=== PATIENT | male | born 1975 ===

== ENCOUNTER 2025-06-28 09:20 | Outpatient (AMB) | payer OTHER, SELFPAY ==
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
[2025-06-28 09:26] VITALS: BP 150/100; PULSE 69; RESP 18; TEMP 35.5; O2SAT 99; BMI 28.0
== END 2025-06-28 10:24 | disposition home or self-care (01) ==
LOC: HO.HMCH 09:21
DX: I10 Essential (primary) hypertension (principal); Z76.89 Persons encountering health services in other specified circumstances

== ENCOUNTER → 2025-06-28 09:20 | Outpatient (BNVA) | payer OTHER, SELFPAY | DX: I10 Essential (primary) hypertension (principal); Z76.89 Persons encountering health services in other specified circumstances | CPT/HCPCS: 96127; 99202 ==

== ENCOUNTER 2025-08-23 08:54 | Outpatient (AMB) | payer OTHER, SELFPAY ==
[2025-08-23 09:04] VITALS: BP 126/78; PULSE 71; RESP 18; TEMP 36.2; O2SAT 95; BMI 26.7
--- NOTE | 2025-08-23 09:04 | A.OFFPC_ITS ---
Vital Signs 08/23/25 09:04 Height 5 ft 11 in Weight 191 lb 2 oz BMI 26.7 BP 126/78 Blood Pressure Location Lt brachial Position Sitting Respiration 18 Pulse 71 Pulse Source Pulse Oximeter Temp 97.1 F Temp Source Temporal Artery Scan Pulse Oximetry (%) 95 Oxygen Delivery Method Room Air Intake Visit Reasons: 7 week follow up Resolution Agent Required: No Accompanied by: Self / Same As Patient Allergies From Pen-Vee K Allergy (Mild, Uncoded 08/23/25 09:12) RASH Medication List - Last Reconciled 08/23/25 by ELIDA Galarza amlodipine 5 mg PO DAILY Tobacco use date assessed: 08/23/25 Dental Screening Dental Screen Date: 08/23/25 Did you have a dental visit in the last 12 months?: No Did you have a dental problem in the last 6 months where you did not have access to dental care?: No Was dental information given to patient?: No HPI 7 week follow up HPI Details Dentist: about couple years-encouraged the patient to get this done Eye: He has not had this check in a longtime Snellen: Right: Left: Corrected vision: no STI screening: Colonoscopy: Patient is this hesitant and wants to think about this and will possibly do this next year Pap Smer:n/a PHQ-9: Flu:he does not get this done COVID: x2 Tdap: reports having this over 15 years ago; declines getting this today Diet:He has been cutting out high cholesterol and salt out of his diet Exercise: The patient is very active; exercises regular and does martial arts Patient denies chest pain, shortness of breath, heart palpitation or dizziness Denies abdominal pain or change in bowel habits Denies any urinary symptoms The patient wants to follow up for lab review due to forgetting to complete preordered labs for this appointment Reports that he will get this done this ashley and follow up in 4 weeks. [facility] Medical History HTN (hypertension) Family History Mother HTN (hypertension) Social History Household Members: None Housing: Apartment Alcohol intake: never Patient Tobacco Use Status: Never used Tobacco e-Cigarette/Vaping Use: Never Used service: No Current occupational status: unemployed Cognitive needs: No Hearing needs: No Vision needs: No Questionnaire Thrive Questionnaire Date Thrive assessed: 06/28/25 I am a: Patient What is your living situation today?: I have a steady place to live Within the past 12 months, did the food you bought not last and you didn't have the money to get more?: Never true Within the past 12 months, did you worry whether your food would run out before you got money to buy more?: Never true Do you have trouble paying for medicines?: No Do you have trouble getting transportation to medical appointments?: No Do you have trouble paying your heating and electricity bill?: No Do you have trouble taking care of your child, family member or friend?: No Do you have trouble with day-to-day activities such as bathing, preparing meals, shopping, managing finances, etc.?: I choose not to answer this question Are you currently unemployed and looking for a job?: Yes Are you interested in more education?: Yes Currently or been in a relationship where the following occur: No concerns reported THRIVE Score: 0 AUDIT C Alcohol Use Questionnaire (AUDIT-C) 3. How often do you have six or more drinks on one occasion?: Never Total Score: 0 ELYSE-7 AMB Questionnaire ELYSE-7 Date ELYSE - 7 assessed: 06/28/25 Source: Developed by Drs. Sid Guzman, Tamy Max, Noman Amanda and colleagues, with an educational donnie from [employer]. Review of Systems Const Denies headache(s) Eyes Denies loss of vision ENT Denies vertigo, Denies dizziness, Denies headache(s) and Denies sore throat Card Denies chest pain, Denies leg edema and Denies lightheadedness Resp Denies cough, Denies hemoptysis and Denies wheezing GI Denies abdominal pain, Denies melena, Denies constipation, Denies diarrhea and Denies vomiting Denies dysuria, Denies urinary frequency and Denies urinary urgency Musc Denies arthralgias, Denies joint swelling, Denies numbness and Denies tingling Neuro Denies Abnormal speech present, Denies behavioral changes, Denies vertigo, Denies dizziness, Denies headache(s), Denies loss of vision, Denies memory loss, Denies numbness and Denies tingling Psych Denies anxiety, Denies behavioral changes, Denies depression, Denies memory loss and Denies panic attacks Everardo/Lymph Denies easy bleeding and Denies easy bruising Aller/Immun Denies wheezing Physical exam (Primary Care) Vital Signs: Last Vital Signs Temp 97.1 F 08/23/25 09:04 Pulse 71 08/23/25 09:04 Resp 18 08/23/25 09:04 BP 126/78 08/23/25 09:04 Pulse Ox 95 08/23/25 09:04 Oxygen Delivery Method Room Air 08/23/25 09:04 BMI result Body Mass Index 26.7 Tobacco/Smoking Status: Tobacco use Status Tobacco use date assessed 08/23/25 08/23/25 09:09 Patient Tobacco Use Status Never used Tobacco 08/23/25 09:09 e-Cigarette/Vaping Use Never Used 08/23/25 09:09 Thrive Assessment: Date of Thrive Assessment Date Thrive assessed 06/28/25 08/23/25 09:09 Currently or been in a relationship where the following occur: No concerns reported Const General: healthy appearing, no acute distress, alert and awake Nutritional Appearance: well nourished Orientation/consciousness: oriented to person, oriented to place and oriented to time HENMT Ears: TM's normal bilaterally General nose exam: Normal nasal mucous membranes and turbinates present Eyes Conjunctivae: conjunctivae normal Sclerae: sclerae normal Pupils: Equal, round and reactive pupils present Neck Neck: Yes no lymphadenopathy and Yes no JVD Thyroid: Thyroid normal Carotids: no bruits Resp Effort & Inspection: normal respiratory effort and not tachypneic Auscultation: no crackles, no rales, no rhonchi and no wheezes Cardio Rate: regular rate Rhythm: regular rhythm Heart sounds: S1 normal heart sound present, S2 normal heart sound present, no murmurs and normal S1 and S2 GI Palpation (GI): Soft to palpation, nontender, no hepatomegaly and no splenomegaly Auscultation: normal bowel sounds Skin General skin exam: no rashes or lesions noted and dry skin Neuro General: oriented to person, oriented to place and oriented to time Cranial nerves: Yes Equal, round and reactive pupils present Speech: No Abnormal speech present Gait exam (Neuro): Normal gait present Motor exam (neuro): no tremor noted Deep tendon reflexes (DTR's): Right triceps reflex intensity grade: 2+, Left triceps reflex intensity grade: 2+, Rt Biceps (C5, C6): 2+, Left biceps reflex intensity grade: 2+, Right brachioradialis reflex intensity grade: 2+, Left brachioradialis reflex intensity grade: 2+, Right patellar reflex intensity grade: 2+ and Left patellar reflex intensity grade: 2+ Extrem Right upper extremity: full ROM Left upper extremity: full ROM Right lower extremity: full ROM; no edema Left lower extremity: full ROM; no edema Psych Mental Status: mental status grossly normal Speech and movement: Normal speech and movement present Affect: normal affect Attitude: cooperative Thought process: Normal thought process present Coding Level of Care Code Est Pt Prev Care 40-64y(28977) Diagnoses Annual physical exam Z00.00 Hypertension, unspecified type I10 Hypertension type: unspecified Time Spent (min) 37 Assessment & Plan Assessment & Plan (1) Annual physical exam: Code(s): Z00.00 - Encounter for general adult medical examination without abnormal findings Category: Medical Plan: Preventative guidelines reviewed with the patient. He has not completed his preordered labs as yet and the patient was reminded to get this done as soon as possible. The patient wants to follow up in office to go over his blood work, will return in 4 weeks for lab review. The patient was advised on the importance of colonoscopy screening, particularly due to the increased risk of colon cancer in men. He is considering scheduling a colonoscopy in the future to ensure early detection and prevention. (2) HTN (hypertension): Code(s): I10 - Essential (primary) hypertension Category: Medical Qualifiers: Hypertension type: unspecified Qualified Code(s): I10 - Essential (primary) hypertension Plan: The patient is managing hypertension primarily through lifestyle modifications, including dietary changes and increased physical activity, which have led to weight loss and improved blood pressure control. The patient prefers to avoid medication if possible and has successfully reduced sodium intake and eliminated fast food from his diet. Follow-up appointments are planned to monitor blood pressure and assess the need for medication if lifestyle changes are insuffici ent. Patient was prescribed amlodipine on his previous visit due to elevated blood pressure He has not taken this medication but has managed to decreased blood pressure through his lifestyle modifications We will continue to monitoring
== END 2025-08-23 09:43 | disposition home or self-care (01) ==
LOC: HO.HMCH 08:54
DX: Z00.00 Encounter for general adult medical examination without abnormal findings (principal); I10 Essential (primary) hypertension

== ENCOUNTER → 2025-08-23 08:54 | Outpatient (BNVA) | payer OTHER, SELFPAY | DX: M54.50 Low back pain, unspecified (principal); V43.52XD Car driver injured in collision with other type car in traffic accident, subsequent encounter | CPT/HCPCS: 99396 ==

== ENCOUNTER 2025-08-30 08:57 | Outpatient (AMB) | payer OTHER, SELFPAY ==
[2025-08-30 09:04] VITALS: BP 122/80; PULSE 61; RESP 18; TEMP 36.4; O2SAT 99; BMI 26.7
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
== END 2025-08-30 09:45 | disposition home or self-care (01) ==
LOC: HO.HMCH 08:58
DX: M54.2 Cervicalgia (principal); V89.2XXD Person injured in unspecified motor-vehicle accident, traffic, subsequent encounter

== ENCOUNTER 2025-09-13 08:51 | Outpatient (REF) | payer OTHER, SELFPAY ==
[2025-09-13 09:04] LABS: MANUAL DIFF FLAG NO
[2025-09-13 09:22] LABS: Hematocrit 40.8 % (42.0-52.0); Hemoglobin 12.9 g/dl (14.0-18.0); Imm Gran Abs Auto 0.01 X10*3/uL (0.00-0.03); Imm Gran Pct Auto 0.2 % (0.0-0.4); Lymphocytes Absolute Auto 1.8 X10*3/uL (1.2-4.9); Mean Corpuscular HGB Conc 31.6 g/dl (31.0-36.0); Mean Corpuscular Hemoglobin 28.0 pg (27.0-33.0); Mean Corpuscular Volume 88.7 fL (80.0-98.0); NRBC Abs Auto 0.000 X10*3/uL (0.0-0.012); NRBC Pct Auto 0.0 /100WBC (0.0-0.2); Platelet Count 337 X10*3/uL (160-400); Red Blood Count 4.60 X10*6/uL (4.60-5.80); White Blood Count 4.3 X10*3/uL (4.8-10.8)
[2025-09-13 10:02] LABS: Alanine Aminotransferase 20 U/L (0-40); Albumin Level 4.6 g/dL (3.5-5.0); Alkaline Phosphatase 67 U/L (39-117); Anion Gap 9 (12-20); Aspartate Amino Transferase 20 U/L (5-37); Blood Urea Nitrogen 16 mg/dL (9-16); Calcium 9.4 mg/dL (8.4-10.2); Carbon Dioxide 30 mmol/L (22-29); Chloride 107 mmol/L (96-108); Cholesterol 217 mg/dL (<200); Estimated Glomerular Filt Rate 53; HDL Cholesterol 35 mg/dL (>40); Potassium 3.8 mmol/L (3.3-5.1); Sodium 142 mmol/L (135-145); Total Protein 7.8 g/dL (6.5-8.0); Triglycerides 65 mg/dL (<150)
[2025-09-13 10:10] LABS: PSA,Total (Free>4and<10) 1.84 ng/mL (0.00-4.00)
== END 2025-09-13 08:52 | disposition home or self-care (01) ==
LOC: HO.LAB 08:51
DX: Z00.00 Encounter for general adult medical examination without abnormal findings (principal)
CPT/HCPCS: 36415; 80053; 80061; 82306; 84153; 84443; 85025

== ENCOUNTER 2025-09-20 08:58 | Outpatient (AMB) | payer OTHER, SELFPAY ==
[2025-09-20 09:01] VITALS: BP 140/88; PULSE 80; RESP 18; O2SAT 100; BMI 26.5
--- NOTE | 2025-09-20 09:01 | A.OFFPC_ITS ---
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 Accompanied by: Self / Same As Patient Allergies From Pen-Vee K Allergy (Mild, Uncoded 09/20/25 09:32) RASH Medication List - Last Reconciled 09/20/25 by ELIDA Galarza amlodipine 5 mg PO DAILY Tobacco use date assessed: 09/20/25 Dental Screening Dental Screen Date: 09/20/25 Did you have a dental visit in the last 12 months?: Yes Did you have a dental problem in the last 6 months where you did not have access to dental care?: No Was dental information given to patient?: Patient has dentist HPI lab review HPI Details The patient is a 50-year-old male presenting for a review of recent laboratory results. He reports managing his blood pressure through natural methods. He takes a low-dose Alessia aspirin and denies the use of NSAIDs like ibuprofen. The patient reports good fluid intake, consuming a lot of water and hibiscus tea. [facility] Medical History HTN (hypertension) Family History Mother HTN (hypertension) Social History Household Members: None Housing: Apartment Alcohol intake: never Patient Tobacco Use Status: Never used Tobacco e-Cigarette/Vaping Use: Never Used service: No Current occupational status: unemployed Cognitive needs: No Hearing needs: No Vision needs: No Questionnaire Thrive Questionnaire Date Thrive assessed: 06/28/25 I am a: Patient What is your living situation today?: I have a steady place to live Within the past 12 months, did the food you bought not last and you didn't have the money to get more?: Never true Within the past 12 months, did you worry whether your food would run out before you got money to buy more?: Never true Do you have trouble paying for medicines?: No Do you have trouble getting transportation to medical appointments?: No Do you have trouble paying your heating and electricity bill?: No Do you have trouble taking care of your child, family member or friend?: No Do you have trouble with day-to-day activities such as bathing, preparing meals, shopping, managing finances, etc.?: I choose not to answer this question Are you currently unemployed and looking for a job?: Yes Are you interested in more education?: Yes Currently or been in a relationship where the following occur: No concerns reported THRIVE Score: 0 ELYSE-7 AMB Questionnaire ELYSE-7 Date ELYSE - 7 assessed: 06/28/25 Source: Developed by Drs. Sid Guzman, Tamy Max, Noman Amanda and colleagues, with an educational donnie from [email or web address]. Review of Systems Const Denies body aches, Denies chills, Denies fever(s), Denies headache(s) and Denies poor appetite Eyes Reports no additional complaints ENT Denies dysphagia, Denies dizziness, Denies headache(s), Reports neck pain (Mild) and Denies odynophagia Card Denies chest pain, Denies syncope, Denies edema, Denies irregular heart rhythm, Denies lightheadedness and Denies dyspnea Resp Denies cough and Denies dyspnea GI Denies abdominal pain, Denies constipation, Denies dysphagia, Denies diarrhea, Denies nausea, Denies odynophagia and Denies vomiting Reports no additional complaints Musc Reports back pain ([id number]-zb-[id number] intermittently) and Reports neck pain (Mild) Skin/Breast Reports system reviewed and no additional complaints, except as documented Neuro Denies dizziness, Denies syncope and Denies headache(s) Psych Reports no additional complaints Physical exam (Primary Care) Vital Signs: Last Vital Signs Pulse 80 09/20/25 09:01 Resp 18 09/20/25 09:01 BP 138/76 09/20/25 09:43 Pulse Ox 100 09/20/25 09:01 Oxygen Delivery Method Room Air 09/20/25 09:01 BMI result Body Mass Index 26.5 Tobacco/Smoking Status: Tobacco use Status Tobacco use date assessed 09/20/25 09/20/25 09:07 Patient Tobacco Use Status Never used Tobacco 09/20/25 09:07 e-Cigarette/Vaping Use Never Used 09/20/25 09:07 Thrive Assessment: Date of Thrive Assessment Date Thrive assessed 06/28/25 09/20/25 09:07 Currently or been in a relationship where the following occur: No concerns reported Const General: cooperative, healthy appearing, comfortable and no acute distress Orientation/consciousness: patient oriented x3 [facility] Head: Yes normocephalic Ears: hearing grossly normal bilaterally General nose exam: Normal external nose present Eyes General: appearance normal, both eyes and all related structures Conjunctivae: conjunctivae normal Neck Neck: Yes full ROM and Yes no lymphadenopathy Resp Effort & Inspection: normal respiratory effort Auscultation: clear to auscultation bilaterally, no crackles, no rales, no rhonchi and no wheezes Cardio Rate: regular rate Rhythm: regular rhythm General: Yes no CVA tenderness Back/Spine/Pelvis Back: no CVA tenderness Cervical Spine: No Cervical spine tenderness Thoracic/Lumbar Spine: straight leg raise negative bilaterally and lumbar spinal tenderness Skin General skin exam: no rashes or lesions noted Neuro General: patient oriented x3 Gait exam (Neuro): Normal gait present Extrem General: Yes normal to inspection, Yes full ROM and No edema Right upper extremity: full ROM; no edema Left upper extremity: full ROM; no edema Right lower extremity: full ROM; no edema Left lower extremity: full ROM; no edema Psych Affect: normal affect Attitude: cooperative Insight: Good insight present (Psych) Judgement: Good judgement present (Psych) Results Reviewed Results Reviewed: Laboratory Tests 09/13/25 09:02 WBC 4.3 L RBC 4.60 Hgb 12.9 L Hct 40.8 L MCV 88.7 MCH 28.0 MCHC 31.6 RDW 13.8 Plt Count 337 Sodium 142 Potassium 3.8 Chloride 107 Carbon Dioxide 30 H Anion Gap 9 L BUN 16 Creatinine 1.42 H Estimated GFR 53 Fasting Glucose 98 Calcium 9.4 Total Bilirubin 0.3 AST 20 ALT 20 Alkaline Phosphatase 67 Total Protein 7.8 Albumin 4.6 Triglycerides 65 Cholesterol 217 H LDL Cholesterol, Calc 169 H HDL Cholesterol 35 L Total PSA 1.84 25-OH Vitamin D Total 48.9 TSH 1.11 Coding Level of Care Code Est Pt Level 3 (45373) Diagnoses Hypertension, unspecified type I10 Hypertension type: unspecified Hyperlipidemia, unspecified hyperlipidemia type E78.5 Hyperlipidemia type: unspecified Anemia, unspecified type D64.9 Anemia type: unspecified type Decreased renal function N28.9 Time Spent (min) 31 Assessment & Plan Assessment & Plan (1) HTN (hypertension): Code(s): I10 - Essential (primary) hypertension Category: Medical Qualifiers: Hypertension type: unspecified Qualified Code(s): I10 - Essential (primary) hypertension Plan: The patient is managing hypertension primarily through lifestyle modifications, including dietary changes and increased physical activity, which have led to weight loss and improved blood pressure control. The patient prefers to avoid medication if possible and has successfully reduced sodium intake and eliminated fast food from his diet. Follow-up appointments are planned to monitor blood pressure and assess the need for medication if lifestyle changes are insufficient. Patient was prescribed amlodipine on his previous visit due to elevated blood pressure He has not taken this medication but has managed to decreased blood pressure through his lifestyle modifications Patient blood pressure was elevated in office at 140/88, recheck bp 138/76. He still wants to try on lower this naturally. Will continue to monitor. (2) HLD (hyperlipidemia): Code(s): E78.5 - Hyperlipidemia, unspecified Category: Medical Qualifiers: Hyperlipidemia type: unspecified Qualified Code(s): E78.5 - Hyperlipide michael, unspecified Plan: The patient's LDL cholesterol is elevated at 169 mg/dL and HDL is low at 35 mg/dL. The initial plan is to trial dietary modifications, focusing on avoiding greasy, fried foods, red meat, pork, egg yolks, and shellfish. To improve HDL, it was recommended to increase intake of fish or take an omega-3 supplement. If lifestyle changes are not effective, medication can be considered. A repeat cholesterol panel will be checked in three months. (3) Anemia: Code(s): D64.9 - Anemia, unspecified Category: Medical Qualifiers: Anemia type: unspecified type Qualified Code(s): D64.9 - Anemia, unspecified Plan: The patient has a mild anemia with low-normal hemoglobin and hematocrit, and a low-normal MCH, which may suggest an iron deficiency. A workup for the anemia, including a repeat CBC, will be performed in three months. (4) Decreased renal function: Code(s): N28.9 - Disorder of kidney and ureter, unspecified Category: Medical Plan: The patient's labs show an elevated creatinine and decreased eGFR, indicating a decrease in kidney function. The patient was counseled to avoid NSAIDs such as ibuprofen, naproxen, and Aleve to protect his kidneys. Continued adequate fluid intake was encouraged. Orders: Orders Lipid Panel 3 Months D64.9 - Anemia, unspecified, E78.5 - Hyperlipidemia, unspecified, I10 - Essential (primary) hypertension Complete Blood Count Auto Diff 3 Months D64.9 - Anemia, unspecified, E78.5 - Hyperlipidemia, unspecified, I10 - Essential (primary) hypertension Comprehensive [place]. Panel Fast 3 Months D64.9 - Anemia, unspecified, E78.5 - Hyperlipidemia, unspecified, I10 - Essential (primary) hypertension UA CC w/rflx Micro + Cult 3 Months D64.9 - Anemia, unspecified, E78.5 - Hyperlipidemia, unspecified, I10 - Essential (primary) hypertension IRON PROFILE 3 Months D64.9 - Anemia, unspecified, E78.5 - Hyperlipidemia, unspecified, I10 - Essential (primary) hypertension TSH reflex Free T4 3 Months D64.9 - Anemia, unspecified, E78.5 - Hyperlipidemia, unspecified, I10 - Essential (primary) hypertension
[2025-09-20 09:43] VITALS: BP 138/76
== END 2025-09-20 09:49 | disposition home or self-care (01) ==
LOC: HO.HMCH 08:58
DX: I10 Essential (primary) hypertension (principal); E78.5 Hyperlipidemia, unspecified; D64.9 Anemia, unspecified; N28.9 Disorder of kidney and ureter, unspecified